=== PATIENT | female | born 1990 | race American Indian/Alaskan Native ===

== ENCOUNTER 2016-08-21 11:42 | Emergency (ER) | payer SELFPAY ==
[2016-08-21 12:00] VITALS: BP 118/88
[2016-08-21 12:29] LABS: Basophils % (Auto) 0.2 % (0.0-1.8); Eosinophils % (Auto) 0.3 % (0.0-4.3); Hematocrit 39.9 % (30.3-42.9); Hemoglobin 13.5 gm/dl (10.1-14.3); Mean Corpuscular HGB Conc 34 % (30-34); Mean Corpuscular Hemoglobin 30 pg (28-32); Mean Corpuscular Volume 89 fl (79-97); Platelet Count 281 K/mm3 (140-440); Red Cell Distribution Width 14.2 % (13.2-15.2)
== END 2016-08-21 12:15 | disposition left against medical advice (07) ==
LOC: ED 11:42
DX: T51.91XA Toxic effect of unspecified alcohol, accidental (unintentional), initial encounter (principal); Z53.21 Procedure and treatment not carried out due to patient leaving prior to being seen by health care provider; Y92.89 Other specified places as the place of occurrence of the external cause
CPT/HCPCS: 36415; 84703; 85025; G0480; 80320